=== PATIENT | male | born 1960 | race Two or more races ===

== ENCOUNTER 2021-10-19 08:03 | Emergency (ER) | payer OTHER ==
[~2021-10-19] VITALS: Ht 160 cm; Wt 59.0 kg
[2021-10-19] MEDS ORDERED: PEP-T-MED262 MG (08:13)
[2021-10-19] MEDS ORDERED: NASAL MIST126 ML (08:14)
[2021-10-19] MEDS ORDERED: ADULT LOW DOSE81 M1 (08:14)
[2021-10-19] MEDS ORDERED: SIMVASTATIN10 MG (08:14)
== END 2021-10-19 12:43 | disposition home or self-care (01) ==
LOC: ER 08:03
DX: U07.1 COVID-19 (principal); I49.9 Cardiac arrhythmia, unspecified; E78.00 Pure hypercholesterolemia, unspecified; G47.30 Sleep apnea, unspecified; J44.9 Chronic obstructive pulmonary disease, unspecified; G43.909 Migraine, unspecified, not intractable, without status migrainosus; Z86.718 Personal history of other venous thrombosis and embolism; Z95.818 Presence of other cardiac implants and grafts

== ENCOUNTER 2021-10-21 10:10 | Outpatient (CLI) | payer OTHER | END 2021-10-21 11:30 | disposition home or self-care (01) | LOC: ASH CLINIC 10:10 | DX: U07.1 COVID-19 (principal) ==

== ENCOUNTER 2024-12-08 16:19 | Outpatient (CLI) | payer OTHER ==
[~2024-12-08 16:19] MED LIST: ADULT LOW DOSE81 M1; NASAL MIST126 ML; PEP-T-MED262 MG; SIMVASTATIN10 MG
== END 2024-12-08 16:26 | disposition home or self-care (01) ==
LOC: LAB 16:19
PROVIDERS: ATTEND Urology
DX: R97.20 Elevated prostate specific antigen [PSA] (principal)

== ENCOUNTER 2025-02-13 14:54 | Outpatient (CLI) | payer OTHER | END 2025-02-13 14:58 | disposition home or self-care (01) | LOC: LAB 14:54 | PROVIDERS: ATTEND Urology | DX: R97.20 Elevated prostate specific antigen [PSA] (principal) ==